=== PATIENT | male | born 1975 | race Caucasian/White ===

== ENCOUNTER 2017-02-24 07:33 | Emergency (ER) | payer OTHER ==
[~2017-02-24] VITALS: Ht 172.7 cm; Wt 133.8 kg
[~2017-02-24 07:33] MED LIST: DOXY75TA; OME20GT
[2017-02-24 07:51] VITALS: BP 138/85
== END 2017-02-24 09:21 | disposition left against medical advice (07) ==
LOC: EDBD 07:33 → ER 07:35
DX: S39.012A Strain of muscle, fascia and tendon of lower back, initial encounter (principal); S16.1XXA Strain of muscle, fascia and tendon at neck level, initial encounter; V43.52XA Car driver injured in collision with other type car in traffic accident, initial encounter; Y93.89 Activity, other specified; Y92.89 Other specified places as the place of occurrence of the external cause; Y99.8 Other external cause status; Z88.8 Allergy status to other drugs, medicaments and biological substances
CPT/HCPCS: 72125; 72131